=== PATIENT | female | born 1985 | race Caucasian/White ===

== ENCOUNTER → 2019-05-17 | Outpatient (CLI) | payer OTHER | LOC: M LRY 17:11 | PROVIDERS: ATTEND Nurse Practitioner Family | DX: R06.2 Wheezing (principal); R53.83 Other fatigue; R06.02 Shortness of breath; R68.89 Other general symptoms and signs ==

== ENCOUNTER → 2019-05-17 | Outpatient (CLI) | payer OTHER ==
--- NOTE | 2019-05-17 19:32 | REP ---
Chest x-ray: Two views. History: Wheezing. Findings: There are increased markings in the left base just above the left hemidiaphragm. The lung gallardo are otherwise clear. Pleural angles are sharp. Heart size is normal. Pulmonary vasculature is not increased. Impression: Increased markings in the left base just above the left hemidiaphragm consistent with atelectasis and/or infiltrate. Electronically Signed by Jb Davalos MD 05/17/2019 08:01 P
== END ==
LOC: M LRY 17:23
PROVIDERS: ATTEND Nurse Practitioner Family
DX: R06.2 Wheezing (principal)
CPT/HCPCS: 71046; 87804; 87880; 94640; G0463

== ENCOUNTER 2019-06-14 07:17 | Day surgery (SDC) | payer OTHER ==
[~2019-06-14] VITALS: Ht 165.1 cm; Wt 139.8 kg
[~2019-06-14 07:17] MED LIST: BUSP5TAB81 PO; CYAN100049 PO; D 50CAP3 PO; NS 1,000 ML IV ONE; WELLTAB38 PO
[2019-06-14] MEDS ORDERED: PROPOFOL 200 MG/20 ML VIAL As Ordered ONE (07:55)
[2019-06-14] MEDS ORDERED: LIDOCAINE 2% INJ 100 MG/5 ML SDV (FOR ANES.) As Ordered ONE (07:55)
[2019-06-14] MEDS ORDERED: fentaNYL 100 MCG/2 ML INJECTION (J3010) As Ordered ONE (08:01)
--- NOTE | 2019-06-14 08:31 | ROOR ---
Patient Name: Tatiana Quinn Procedure Date: 06/14/2019 8:13 AM Date of : 1985 Age: 34 Room: [facility] Gender: Female Note Status: Finalized Procedure: Upper Endoscopy + Biopsies Indications: Heartburn, Exclusion of Helicobacter pylori, Preoperative assessment for bariatric surgery to treat morbid obesity Providers: Estiven Serrano MD Referring MD: Chelsie Russell ([facility])MD Requesting Provider: Medicines: Monitored Anesthesia Care Complications: No immediate complications. Procedure: Pre-Anesthesia Assessment: - The heart rate, respiratory rate, oxygen saturations, blood pressure, adequacy of pulmonary ventilation, and response to care were monitored throughout the procedure. The Endoscope was introduced through the mouth, and advanced to the second part of duodenum. The upper GI endoscopy was accomplished without difficulty. The patient tolerated the procedure well. Findings: The Z-line was regular and was found 40 cm from the incisors. Multiple biopsies were obtained with cold forceps for evaluation to rule out Logan's Esophagus randomly at the gastroesophageal junction. No other significant abnormalities were identified in a careful examination of the stomach. Biopsies were taken with a cold forceps in the gastric antrum for Helicobacter pylori testing. The exam of the duodenum was otherwise normal. Impression: - Z-line regular, 40 cm from the incisors. - Multiple biopsies were obtained at the gastroesophageal junction. - Biopsies were taken with a cold forceps for Helicobacter pylori testing. - The examination was otherwise normal. Recommendation: - Patient has a contact number available for emergencies. The signs and symptoms of potential delayed complications were discussed with the patient. Return to normal activities tomorrow. Written discharge instructions were provided to the patient. - High fiber diet. - Discharge patient to home. - Continue present medications. - Await pathology results. - Telephone GI clinic for pathology results in 1 week. - Return to referring physician. - The findings and recommendations were discussed with the patient's family. Estiven Serrano MD Estiven Serrano MD 06/14/2019 8:30:49 AM Electronically signed by Estiven Serrano MD Number of Addenda: 0 Note Initiated On: 06/14/2019 8:13 AM Estimated Blood Loss: Estimated blood loss: none.
[2019-06-14 08:50] VITALS: BP 124/80
== END 2019-06-14 09:08 | disposition home or self-care (01) ==
LOC: M OPP 07:17
PROVIDERS: ATTEND Internal Medicine Gastroenterology
DX: Z01.818 Encounter for other preprocedural examination (principal); E66.01 Morbid (severe) obesity due to excess calories; R12 Heartburn; G47.30 Sleep apnea, unspecified; Z79.899 Other long term (current) drug therapy; Z88.2 Allergy status to sulfonamides
CPT/HCPCS: 43239; 88305; J3010

== ENCOUNTER 2020-04-08 09:18 | Emergency (ER) | payer OTHER ==
[~2020-04-08] VITALS: Ht 165.1 cm; Wt 99.2 kg
[~2020-04-08 09:18] MED LIST changes: -NS 1,000 ML IV ONE
[2020-04-08] MEDS ORDERED: NS 1,000 ML IV ONE (10:00)
--- NOTE | 2020-04-08 10:12 | REPVR ---
PROCEDURE INFORMATION: Exam: XR Chest, 2 Views Exam date and time: 04/08/2020 10:04 AM Age: 34 years old Clinical indication: Other: Abdominal pain TECHNIQUE: Imaging protocol: XR of the chest Views: 2 views. COMPARISON: DC CHEST 2 VIEW 05/17/2019 5:25 PM FINDINGS: Lungs: Unremarkable. No consolidation. Pleural space: Unremarkable. No pleural effusion. No pneumothorax. Heart/Mediastinum: The cardiomediastinal silhouette is fairly stable in appearance. Bones/joints: Unremarkable. IMPRESSION: No evidence for acute pulmonary disease. Electronically signed by: Jose Brown On 04/08/2020 10:11:49 AM
[2020-04-08 10:23] LABS: BASO % 0.5 % (0.0-1.0); EOS # 0.1 10^3/uL (0.0-0.5); EOS % 1.9 % (0.0-3.0); HEMATOCRIT 40.1 % (36.0-47.0); HEMOGLOBIN 13.1 g/dl (12.0-15.5); LYMPH # 1.8 10^3/uL (1.5-5.0); LYMPH % 30.7 % (24.0-44.0); MEAN CORPUSCULAR HEMOGLOBIN 28.1 pg (27.0-33.0); MEAN CORPUSCULAR HGB CONC 32.7 g/dl (32.0-36.5); MEAN CORPUSCULAR VOLUME 86.1 fl (80.0-96.0); MONO # 0.3 10^3/uL (0.0-0.8); MONO % 5.4 % (0.0-5.0); NEUTROPHILS # 3.5 10^3/uL (1.5-8.5); NEUTROPHILS % 61.3 % (36.0-66.0); PLATELET COUNT, AUTOMATED 260 10^3/uL (150-450); RED BLOOD COUNT 4.66 10^6/uL (4.00-5.40); WHITE BLOOD COUNT 5.7 10^3/uL (4.0-10.0)
[2020-04-08] MEDS ORDERED: GASTROGRAFIN SOLUTION 30ML (Q9963) As Ordered ONE (10:25)
[2020-04-08] MEDS: GASTROGRAFIN SOLUTION 30ML PO SCH ×3 (10:35→11:05)
[2020-04-08 11:01] LABS: ALBUMIN 3.4 GM/DL (3.2-5.2); ALT/SGPT 59 U/L (12-78); BILIRUBIN,DIRECT 0.2 MG/DL (0.0-0.2); BILIRUBIN,TOTAL 1.1 MG/DL (0.2-1.0); BLOOD UREA NITROGEN 9 MG/DL (7-18); CALCIUM LEVEL 8.6 MG/DL (8.5-10.1); CARBON DIOXIDE LEVEL 26 MEQ/L (21-32); CHLORIDE LEVEL 109 MEQ/L (98-107); CK-MB VALUE MASS < 1.0 NG/ML (<3.6); CPK CREATINE PHOSPHOKINASE 62 U/L (26-192); CREATININE FOR GFR 0.56 MG/DL (0.55-1.30); GLOMERULAR FILTRATION RATE > 60.0 (>60); GLUCOSE, FASTING 85 MG/DL (70-100); LIPASE 77 U/L (73-393); MB/CK RELATIVE INDEX 1.61 (< OR =4); POTASSIUM SERUM 4.7 MEQ/L (3.5-5.1); SODIUM LEVEL 140 MEQ/L (136-145); TOTAL PROTEIN 6.6 GM/DL (6.4-8.2); TROPONIN I < 0.02 NG/ML (< 0.10)
[2020-04-08] MEDS ORDERED: ISOVUE-370 76% 100ML VIAL As Ordered ONE (11:55)
--- NOTE | 2020-04-08 12:43 | REPVR ---
PROCEDURE INFORMATION: Exam: CT Abdomen And Pelvis With Contrast Exam date and time: 04/08/2020 12:03 PM Age: 34 years old Clinical indication: Abdominal pain; Localized; Left upper quadrant (luq); Prior surgery; Surgery date: 6+ months; Surgery type: Luq pain, S/P gastric bypass surg 08/31/19 TECHNIQUE: Imaging protocol: Computed tomography of the abdomen and pelvis with intravenous contrast. Radiation optimization: All CT scans at this facility use at least one of these dose optimization techniques: automated exposure control; mA and/or kV adjustment per patient size (includes targeted exams where dose is matched to clinical indication); or iterative reconstruction. Contrast material: ISOVUE 370; Contrast volume: 100 ml; Contrast route: INTRAVENOUS (IV); Other contrast: Oral, Gastrographin, 10 ml gastrographin in 290ml water x 2; COMPARISON: No relevant prior studies available. FINDINGS: Lungs: The visualized lung bases demonstrate minor dependent atelectasis. There is minor scarring in the right middle lobe. Liver: Normal. No mass. Gallbladder and bile ducts: Cholecystectomy clips are present. Pancreas: Normal. No ductal dilation. Spleen: Normal. No splenomegaly. Adrenals: Normal. No mass. Kidneys and ureters: Normal. No hydronephrosis. Stomach and bowel: There are operative changes of gastric bypass. The small bowel is not obstructed. The large bowel is grossly unremarkable in appearance. Appendix: The appendix appears normal. Intraperitoneal space: There is no free air. Small free fluid in the pelvis is not clearly outside physiologic limits. Vasculature: Unremarkable. No abdominal aortic aneurysm. Lymph nodes: Unremarkable. No enlarged lymph nodes. Bladder: Grossly unremarkable. Reproductive: No gross adnexal abnormality is apparent, but ultrasound would be more appropriate in this regard. Bones/joints: Degenerative changes involve the spine. Soft tissues: Unremarkable. IMPRESSION: No acute abnormality. Electronically signed by: Jose Brown On 04/08/2020 12:42:52 PM
[2020-04-08] MEDS ORDERED: GI COCKTAIL 50ML BTL(HYOSCYAMINE/MAALOX/LIDOCAINE VISCOUS)(1:3:1) PO ONE (13:00)
[2020-04-08] MEDS ORDERED: OMEP40CA97 PO (13:47)
[2020-04-08] MEDS ORDERED: CARA1TAB6 PO (13:47)
[2020-04-08 13:49] VITALS: BP 120/71
--- NOTE | 2020-04-17 11:39 | ECGEPIP ---
[facility] - ED Test Date: 2020-04-08 Pat Name: YESSICA CASTILLO Department: Room: - Gender: Female Promotion Officer: : 1985 Requested By: ALBINO Reyes PA-C Order Number: [id number] Reading MD: Flower Knight Measurements Intervals [place] Rate: 79 P: 48 HI: 148 QRS: 34 QRSD: 86 T: 15 QT: 375 QTc: 431 Interpretive Statements SINUS RHYTHM NORMAL ECG NO PRIOR DUE TO DOWNTIME
== END 2020-04-08 14:03 | disposition home or self-care (01) ==
LOC: M ED 09:18
DX: K29.70 Gastritis, unspecified, without bleeding (principal); K80.20 Calculus of gallbladder without cholecystitis without obstruction; Z98.84 Bariatric surgery status; I10 Essential (primary) hypertension; Z88.1 Allergy status to other antibiotic agents
CPT/HCPCS: 71046; 74177; 80048; 80076; 81001; 82550; 82553; 83690; 84484; 85025; 93005; 96360; 99284; Q9967